=== PATIENT | female | born 1985 | race Hispanic/Latino ===

== ENCOUNTER 2021-10-11 10:35 | Emergency (ER) | payer OTHER ==
--- NOTE | 2021-10-11 12:10 | RAD REPORT ---
EXAM DESCRIPTION: Jess Single View10/11/2021 12:03 pm CLINICAL HISTORY: Chest pain COMPARISON: none FINDINGS: The lungs appear clear of acute infiltrate. The heart is normal size IMPRESSION: No acute abnormalities displayed
[2021-10-11] MEDS ORDERED: LIDOCAINE VISCOUS 2% SOLN 15 ML UDC ONE (12:14)
[2021-10-11] MEDS ORDERED: MAGNES/ALUMIN/SIMET 30ML UCUP ONE (12:14)
[2021-10-11 12:27] LABS: Absolute Lymphocytes (CBC) 2.3 K/uL (0.7-4.9); Hematocrit 40.9 % (36.0-45.0); Lymphocytes % 29.9 % (15.3-44.8); MPV 8.1 fL (7.6-11.3); RBC Red Blood Cell Count 4.37 M/uL (3.86-4.86)
--- NOTE | 2021-10-11 16:38 | EDPHYS ---
Physician Documentation [facility] Name: Brigette Muro Age: 36 yrs Sex: Female : 1985 Arrival Date: 10/11/2021 Time: 10:40 Bed 9 Private MD: Quinn Prather HPI: 10/11 10:48 This 36 yrs old Female presents to ER via Ambulatory with complaints of Lips jmm Swelling, Chest Pain. 10:48 The patient or guardian reports chest pain that is located primarily in the substernal jmm area. The pain does not radiate. Associated signs and symptoms: Pertinent negatives: shortness of breath. The chest pain is described as burning. Duration: The patient or guardian reports multiple episodes. This is a 36-year-old female with a history of asthma the presents emerged department with complaints of substernal chest pain beginning initially approximately 2 weeks ago which has been intermittent. Patient states she has had 3 other episodes of chest pain, described as a burning sensation which goes up to the throat. Patient also complains of intermittent episodes of swelling to the lip. Patient denies vomiting, fever, cough.. [employer]YING [employer]ACH[employer]NS: 16:47 LMP N/A - control method ll1 Historical: - Allergies: 10:47 PENICILLINS; ll1 - PMHx: 10:47 Asthma; ll1 - PSHx: 10:47 vaginal SX; ll1 - Immunization history:: Client reports receiving the 2nd dose of the Covid vaccine. - Social history:: Smoking status: Patient denies any tobacco usage or history of. ROS: 10:48 Constitutional: Negative for fever, chills, and weight loss. jmm 10:48 Cardiovascular: Positive for chest pain. 10:48 All other systems are negative. Exam: 10:48 Constitutional: This is a well developed, well nourished patient who is awake, alert, jmm and in no acute distress. Head/Face: atraumatic. Eyes: EOMI, no conjunctival erythema appreciated ENT: Moist Mucus Membranes Neck: Trachea midline, Supple Chest/axilla: Normal chest wall appearance and motion. Cardiovascular: Regular rate and rhythm. No edema appreciated Respiratory: Normal respirations, no respiratory distress appreciated Abdomen/GI: Non distended, soft Back: Normal ROM Skin: General appearance color normal MS/ Extremity: Moves all extremities, no obvious deformities appreciated, no edema noted to the lower extremities Neuro: Awake and alert Psych: Behavior is normal, Mood is normal, Patient is cooperative and pleasant Vital Signs: 10:48 BP 132 / 84; Pulse 94; Resp 16; Temp 98.1; Pulse Ox 100% ; Weight 89.81 kg; Height 5 ll1 ft. 4 in. (165 cm); Pain 0/10; 10:48 Body Mass Index 32.99 (89.81 kg, 165 cm) ll1 MDM: 11:26 Patient medically screened. [facility] 16:36 Data reviewed: vital signs, nurses notes. Counseling: I had a detailed discussion with [facility] the patient and/or guardian regarding: the historical points, exam findings, and any diagnostic results supporting the discharge/admit diagnosis, lab results. Refusal of service: The patient/guardian displays adequate decision making capability and despite a detailed discussion of alternatives, benefits, risks, and consequences refuses: Chemistry panel, troponin. 10/11 11:22 Order name: CBC with Diff; Complete Time: 12:37 [facility] 10/11 11:22 Order name: XRAY Chest (1 view); Complete Time: 12:14 [facility] 10/11 10:48 Order name: EKG; Complete Time: 10:49 [facility] 10/11 10:48 Order name: EKG - Nurse/Tech; Complete Time: 10:48 [facility] 10/11 11:22 Order name: Cardiac monitoring; Complete Time: 12:19 [facility] 10/11 11:22 Order name: IV Saline Lock; Complete Time: 12:02 [facility] 10/11 11:22 Order name: Labs collected and sent; Complete Time: 12:02 [facility] 10/11 11:22 Order name: O2 Per Protocol; Complete Time: 12:02 [facility] 10/11 11:22 Order name: O2 Sat Monitoring; Complete Time: 12:02 Administered Medications: 12:21 Drug: GI Cocktail without - (Maalox Suspension 30 ml, Lidocaine Liquid 2 % 15 ll1 ml) Route: PO; 15:07 Follow up: Response: No adverse reaction 1 Disposition Summary: 10/11/21 16:37 Discharge Ordered Location: Home [facility] Condition: Stable [facility] Diagnosis - Chest pain, unspecified [facility] Followup: [facility] - With: Private Physician - When: 2 - 3 days - Reason: Recheck today's complaints, Continuance of care, Re-evaluation by your physician Discharge Instructions: - Discharge Summary Sheet [facility] - Nonspecific Chest Pain, Adult [facility] Forms: - Medication Reconciliation Form [facility] - Thank You Letter socorro - Antibiotic Education [facility] - Prescription Opioid Use [facility] Prescriptions: - Pepcid 20 mg Oral Tablet - take 1 tablet by ORAL route every 12 hours for 10 days; 20 tablet; Refills: 0, [facility] Product Selection Permitted - Medrol (Gianfranco) 4 mg Oral Tablets, Dose Pack - take 1 tablet by ORAL route as directed - follow package instructions; 1 jm packet; Refills: 0, Product Selection Permitted Signatures: Dispatcher [employer] Nitin Pacheco PA PA jmm Lewis, Lynsay, RN RN ll1 Corrections: (The following items were deleted from the chart) 10:48 10:47 Allergies: No Known Allergies; ll1 ll1
--- NOTE | 2021-10-11 16:38 | ER ---
Nurse's Notes [facility] Name: Brigette Muro Age: 36 yrs Sex: Female : 1985 Arrival Date: 10/11/2021 Time: 10:40 Bed 9 Private MD: Diagnosis: Chest pain, unspecified Presentation: 10/11 10:43 Chief complaint: Patient states: Swelling of lips for 1 day. (Has happened twice before ll1 in the past 15 days). No new meds or foods. Chest pain off/on 15 days. Abd bloating and gas with eating for 15 days. No fever. Ebola Screen: Patient denies travel to an Ebola-affected area in the 21 days before illness onset. Initial Sepsis Screen: Does the patient meet any 2 criteria? No. Patient's initial sepsis screen is negative. Does the patient have a suspected source of infection? No. Patient's initial sepsis screen is negative. Risk Assessment: Do you want to hurt yourself or someone else? Patient reports no desire to harm self or others. Onset of symptoms was September 26, 2021. 10:43 Method Of Arrival: Ambulatory ll1 10:43 Acuity: EMILY 3 ll1 10:48 Coronavirus screen: Vaccine status: Patient reports receiving the 2nd dose of the covid ll1 vaccine. Client denies travel out of the [place] in the last 14 days. At this time, the client does not indicate any symptoms associated with coronavirus-19. Triage Assessment: 10:48 General: Appears uncomfortable, Behavior is calm, cooperative, appropriate for age. ll1 Pain: Complains of pain in chest. EENT: Reports lower lip swelling. Cardiovascular: Reports chest pain. JAVA TECH: 16:47 LMP N/A - control method ll1 Historical: - Allergies: 10:47 PENICILLINS; ll1 - PMHx: 10:47 Asthma; ll1 - PSHx: 10:47 vaginal SX; ll1 - Immunization history:: Client reports receiving the 2nd dose of the Covid vaccine. - Social history:: Smoking status: Patient denies any tobacco usage or history of. Screenin:06 Abuse screen: Denies threats or abuse. Nutritional screening: No deficits noted. ll1 Tuberculosis screening: No symptoms or risk factors identified. Fall Risk IV access (20 points). Total Menjivar Fall Scale indicates No Risk (0-24 pts). Assessment: 12:22 Reassessment: No changes from previously documented assessment. Patient and/or family ll1 updated on plan of care and expected duration. Pain level reassessed. Patient is alert, oriented x 3, equal unlabored respirations, skin warm/dry/pink. 15:06 Reassessment: No changes from previously documented assessment. Patient and/or family ll1 updated on plan of care and expected duration. Pain level reassessed. Patient is alert, oriented x 3, equal unlabored respirations, skin warm/dry/pink. Pain: Pain does not radiate. Pain began 1 day ago. Vital Signs: 10:48 BP 132 / 84; Pulse 94; Resp 16; Temp 98.1; Pulse Ox 100% ; Weight 89.81 kg; Height 5 ll1 ft. 4 in. (165 cm); Pain 0/10; 10:48 Body Mass Index 32.99 (89.81 kg, 165 cm) ll1 ED Course: 10:40 Patient arrived in ED. ds1 10:42 Nitin Florez PA is PHCP. jmm 10:42 Quinn Arteaga MD is Attending Physician. jmm 10:47 Triage completed. ll1 10:48 Arm band placed on. ll1 11:20 EKG done, by ED staff, reviewed by Quinn Arteaga MD. mh5 11:42 Missed attempt(s): 20 gauge in left antecubital area. Bleeding controlled, band aid eh3 applied, catheter tip intact. 11:45 Missed attempt(s): 22 gauge in right antecubital area. Bleeding controlled, band aid eh3 applied, catheter tip intact. 12:03 Carlito Lizarraga, RN is Primary Nurse. 1 12:05 XRAY Chest (1 view) In Process Unspecified. EDMS 12:18 D-Dimer Sent. 5 12:18 Basic Metabolic Panel Sent. 5 12:18 CBC with Diff Sent. 5 12:19 Troponin HS Sent. 5 12:21 Missed attempt(s): 22 gauge in left forearm. Bleeding controlled, band aid applied, ll1 catheter tip intact. 12:30 labs need to be recollected. Lab called for help with re-draw. Patient maintains SpO2 ll1 saturation greater than 95% on room air. 15:06 Patient has correct armband on for positive identification. Bed in low position. Call ll1 light in reach. Client placed on continuous cardiac and pulse oximetry monitoring. NIBP monitoring applied. 16:47 No provider procedures requiring assistance completed. Patient did not have IV access ll1 during this emergency room visit. Administered Medications: 12:21 Drug: GI Cocktail without - (Maalox Suspension 30 ml, Lidocaine Liquid 2 % 15 ll1 ml) Route: PO; 15:07 Follow up: Response: No adverse reaction ll1 Medication: 15:06 VIS not applicable for this client. ll1 Outcome: 16:37 Discharge ordered by MD. quintanilla 16:47 Patient left the ED. ll1 16:47 Discharged to home ambulatory. ll1 16:47 Condition: stable 16:47 Discharge instructions given to patient, Instructed on discharge instructions, follow up and referral plans. medication usage, Demonstrated understanding of instructions, follow-up care, medications, Prescriptions given X 3. Signatures: Dispatcher [employer] EDMS Nitin Florez PA PA jmm Sanford, Demi 1 Belen Leon 5 Carlito Lizarraga RN RN 1 Charlene Sumner 3 Corrections: (The following items were deleted from the chart) 10:48 10:47 Allergies: No Known Allergies; ll1 ll1 12:52 12:51 Missed attempt(s): 20 gauge in left Bleeding controlled, band aid applied, eh3 catheter tip intact. eh3 12:52 12:52 Missed attempt(s): 20 gauge in left eh3 eh3 12:53 12:51 Missed attempt(s): 20 gauge in left antecubital area. Bleeding controlled, band eh3 aid applied, catheter tip intact. eh3 12:53 12:52 Missed attempt(s): 22 gauge in right antecubital area. Bleeding controlled, band eh3 aid applied, catheter tip intact. eh3 12:54 12:52 Missed attempt(s): 22 gauge in right antecubital area. Bleeding controlled, band eh3 aid applied, catheter tip intact. eh3
[2021-10-11 16:53] VITALS: BP 132/84; TEMP 98.1; O2SAT 100
--- NOTE | 2021-10-12 09:36 | EKG ---
Test Date: 2021-10-11 Test Time: 10:43:43 Latin Dancer: MADONNA MEASUREMENT RESULTS: Intervals: Rate: 87 IL: 120 QRSD: 82 QT: 360 QTc: 433 [place]: P: 58 IL: 120 QRS: 71 T: 48 INTERPRETIVE STATEMENTS: Normal sinus rhythm Normal ECG No previous ECG available for comparison Electronically Signed On 10-12-21 09:32:39 CDT by Victor Manuel Giordano
== END 2021-10-11 16:47 | disposition home or self-care (01) ==
LOC: ER 10:35
DX: R07.9 Chest pain, unspecified (principal); J45.909 Unspecified asthma, uncomplicated; Z88.0 Allergy status to penicillin
CPT/HCPCS: 71045; 85025; 93005; 99284